=== PATIENT | female | born 1990 ===

== ENCOUNTER → 2018-01-03 | Outpatient (CLI) | payer SELFPAY ==
[~2018-01-03] MED LIST: SERT-184 PO
[2018-01-03 13:17] LABS: PLATELET COUNT, AUTOMATED 367 K/uL (150-450)
== END ==
LOC: LAB 12:59
PROVIDERS: ATTEND Internal Medicine
DX: F41.9 Anxiety disorder, unspecified (principal)
CPT/HCPCS: 36415; 82040; 82247; 82310; 82374; 82435; 82565; 82728; 82947; 83540; 83550; 84075; 84132; 84155; 84295; 84443; 84450; 84460; 84520; 84703; 85025